=== PATIENT | male | born 1965 | race Caucasian/White ===

== ENCOUNTER 2020-05-06 12:39 | Outpatient (CLI) | payer BC | END 2020-05-06 12:40 | disposition home or self-care (01) | LOC: LAB 12:39 | PROVIDERS: ATTEND Family Medicine | DX: I82.409 Acute embolism and thrombosis of unspecified deep veins of unspecified lower extremity (principal); Z51.81 Encounter for therapeutic drug level monitoring; Z79.01 Long term (current) use of anticoagulants | CPT/HCPCS: 85610 ==

== ENCOUNTER 2020-05-18 13:28 | Outpatient (CLI) | payer BC | END 2020-05-18 13:29 | disposition home or self-care (01) | LOC: LAB 13:28 | PROVIDERS: ATTEND Family Medicine | DX: I82.409 Acute embolism and thrombosis of unspecified deep veins of unspecified lower extremity (principal) | CPT/HCPCS: 85610 ==

== ENCOUNTER 2020-05-29 10:35 | Outpatient (CLI) | payer BC | END 2020-05-29 10:36 | disposition home or self-care (01) | LOC: LAB 10:35 | PROVIDERS: ATTEND Family Medicine | DX: I82.409 Acute embolism and thrombosis of unspecified deep veins of unspecified lower extremity (principal) | CPT/HCPCS: 85610 ==